=== PATIENT | male | born 1950 | race Caucasian/White ===

== ENCOUNTER 2017-10-31 11:52 | Outpatient (CLI) | payer BC ==
[~2017-10-31] VITALS: Ht 165.1 cm; Wt 101.4 kg
--- NOTE | ~2017-10-31 | HEMODYNAMI ---
PATIENT:LYN RUSS MEDICAL RECORD: [id number] : 46 LOCATION:[facility] ADMISSION DATE: 10/31/17 Generatedon:10/31/201715:13 Patient name: LYN RUSS Patient #: [id number] SSN: : 1950 Date of study: 10/31/2017 Page: Of Hemodynamic Procedure Report Patient Data Patient Demographics Procedure consent was obtained First Name: LYN Gender: Male Last Name: JEB : 1950 [facility] Initial: HEAVEN Age: 66 year(s) Patient #: [id number] Race: Unknown Additional ID: [id number] Contact details Address: [address] [place] [address] State: [place] City: [place] Zip code: [address] Past Medical History Allergies Allergen Reaction Date Comments Reported Other allergy 10/31/2017 PCN Admission Admission Data Admission Date: 10/31/2017 Admission Time: 11:52 Height (in.): 66 BSA: 2.11 (m2) Height (cm.): 167.64 BMI: 36.64 (kg/m2) Weight (lbs.): 227 Weight (kg.): 102.97 Lab Results Lab Result Date: 10/31/2017 Lab Result Time: 0:00 Biochemistry Name Units Result Min Max BUN mg/dl 25 --(----)-* 7 18 Creatinine mg/dl 1.3 --(---*)-- 0.6 1.3 CBC Name Units Result Min Max Hemoglobin g/dl 47.9 --(----)-* 13.5 17.5 Procedure Procedure Types Cath Procedure Diagnostic Procedure LHC LHC w/Coronaries w/Grafts Sedation Charges Moderate Sedation up to 30 minutes PCI Procedure Coronary Stent Coronary Stent Initial Procedure Description Procedure Date Procedure Date: 10/31/2017 Procedure Start Time: 14:42 Procedure End Time: 15:11 Procedure Staff Name Function Carmine Mahoney MD Performing Physician Trudi Montenegro RT Monitor Jesús Reynolds RN Nurse Mary Bee RT Scrub Procedure Data Cath Procedure Fluoroscopy Diagnostic fluoroscopy Total fluoroscopy Time: 6.8 time: 6.8 min min Diagnostic fluoroscopy Total fluoroscopy dose: 496 dose: 496 mGy mGy Contrast Material Contrast Material Type Amount (ml) Isovue 300 122 Entry Location Entry Primary Successful Side Size Upsize Upsize Entry Closure Succes sful Closure Location (Fr) 1 (Fr) 2 (Fr) Remarks Device Remarks Femoral Right 5 Fr 6 Fr Exoseal artery Short Estimated blood loss: 10 ml Diagnostic catheters Device Type Used For End Catheter Placement MULTIPACK JL 4.0 5Fr Procedure catheter MULTIPACK 3DRC 5Fr Procedure catheter DIAGNOSTIC IM 5Fr Procedure catheter ([id number]) MULTIPACK Pigtail 5 Fr Procedure catheter Procedure Complications No complications Procedure Medications Medication Administration Route Dosage Oxygen etCO2 Nasal cannula 2 l/min Heparin Flush Bag added to field 2 bags (1000units/500ml NS) 0.9% NaCl I.V. 100 ml/hr Fentanyl I.V. 50 mcg Versed I.V. 1 mg Fentanyl I.V. 50 mcg Versed I.V. 1 mg Heparin Bolus I.V. 19314 units Brilinta P.O. 180 mg Hemodynamics Rest BSA: 2.11 (m2) O2 Consumption: Estimated: 249.54 (ml/min) O2 Consumption indexed : Estimated:118.27 (ml/min/m) Heart Rate: 76 (bpm) Pressure Samples Time Site Value (mmHg) Purpose Heart Use Rate(bpm) 14:52 LV 155/20,36 Snapshot 76 14:53 AO 159/46(87) Pullback 76 14:53 LV 122/2,16 Pullback 76 Gradients Valve Time Site 1 Site 2 Mean SEP/DFP Peak To Heart Use (mmHg) (sec/min) Peak Rate (mmHg) (bpm) Aortic 14:53 LV AO 0 76 122/2,16 159/46(87) Calculations Valve P-P Mean Valve Index Valve Source Name Gradient Area Flow (cm2) Aortic 0 0 Snapshots Pre Cath Intra NCS Post Cath Vital Signs Time Heart Resp SPO2 etCO2 NIBP (mmHg) Rhythm Pain Sedation Rate (ipm) (%) (mmHg) Status Level (bpm) 14:29:47 67 17 97 0 177/107(149) NSR 0 (11) 10(A) , No pain 14:39:06 57 16 82 0 146/78(106) NSR 0 (11) 9(A) , No pain 14:44:21 61 17 95 0 158/101(134) NSR 0 (11) 9(A) , No pain 14:48:37 76 18 96 37.5 156/88(113) NSR 0 (11) 9(A) , No pain 14:54:13 76 18 94 9 149/86(112) NSR 0 (11) 9(A) , No pain 14:58:36 73 17 93 32.3 153/83(116) NSR 0 (11) 9(A) , No pain 15:02:57 77 17 93 21 150/80(110) NSR 0 (11) 9(A) , No pain 15:07:16 78 16 94 8.2 149/83(113) NSR 0 (11) 9(A) , No pain 15:12:41 79 17 93 8.2 156/80(108) NSR 0 (11) 9(A) , No pain Medications Time Medication Route Dose Verified Delivered Reason Notes Effectiveness by by 14:32:18 Oxygen etCO2 2 Carmine Jesús Per physician Nasal l/min Denzel Reynolds RN cannula 14:32:25 Heparin Flush added 2 Carmine Jesús used for Bag to bags Denzel Reynolds RN procedure (1000units/500ml field NS) 14:32:36 0.9% NaCl I.V. 100 Carmine Jesús Per physician ml/hr Denzel Reynolds RN 14:37:22 Fentanyl I.V. 50 Carmine Jesús for sedation mcg Denzel Reynolds RN 14:37:29 Versed I.V. 1 mg Carmine Jesús for sedation Denzel Reynolds RN 14:42:49 Fentanyl I.V. 50 Carmine Jesús for sedation mcg Denzel Reynolds RN 14:42:54 Versed I.V. 1 mg Carmine Jesús for sedation Denzel Reynolds RN 14:59:39 [place]. 39144 Carmine Jesús for units Denzel Reynolds RN anticoagulation 15:13:19 Brilinta P.O. 180 Carmine Jesús for mg Denzel Reynolds RN antiplatelet therapy Procedure Log Time Note 14:10:25 Mary Bee RT(R) sent for patient. Start room use. 14:22:53 Patient Height : 66 inches 14:23:18 Patient Weight : 227 lbs 14:24:02 Lab Result : BUN 25 mg/dl 14:24: Lab Result : Hemoglobin 47.9 g/dl 14::02 Lab Result : Creatinine 1.3 mg/dl 14::23 Diagnostic Cath status Elective 14:25:26 Time tracking: Regular hours (M-F 7:00 - 5:00) 14:25:31 Plan of Care:Hemodynamics will remain stable., Cardiac rhythm will remain stable., Comfort level will be maintained., Respiratory function will remain adequate., Patient/ family verbilizes understanding of procedure., Procedure tolerated without complication., Recovers from procedure without complications.. 14:25:37 Patient received from Pre/Post Procedure Room to CCL 3 Alert and oriented. Tansferred to table in Supine position. 14:25:38 Warm blankets applied, and rafa hugger turned on for patient comfort. 14:25:39 Correct patient and procedure confirmed by team. 14:25:40 Signed procedure consent form obtained from patient. 14:25:42 ECG and BP/O2 sat monitors applied to patient. 14:25:57 H&P Date Dictated: 10/23/2017 Within 30 days and on chart.. 14:25:59 Pre-procedure instructions explained to patient. 14:26:01 Family in waiting room. 14:26:03 Patient NPO since Midnight. 14:26:28 Patient allergic to Other allergyPCN 14:26:33 Was the patient premedicated? No 14:26:45 Is patient on blood thinner?No 14:27:27 Patient diabetic? No. 14:27:32 Snore? Yes 14:27:45 IV patent on arrival in left hand with 0.9% NaCl at [facility]. 14:28:03 Right groin area was prepped with chlora-prep and draped in sterile fashion 14:28:07 Physician paged 14:30:30 Sleep apnea? Yes 14:32:18 Oxygen 2 l/min etCO2 Nasal cannula was administered by Jesús Reynolds RN; Per physician; 14:32:25 Heparin Flush Bag (1000units/500ml NS) 2 bags added to field was administered by Jesús Reynolds RN; used for procedure; 14:32:36 0.9% NaCl 100 ml/hr I.V. was administered by Jesús Reynolds RN; Per physician; 14:33:30 Physician arrived 14:33:31 --------ALL STOP TIME OUT------ 14:33:32 Final Timeout: patient, procedure, and site verified with staff and physician. All members of the team are in agreement. 14:33:34 Right Radial & Right Groin site verified by team. 14:33:39 Physical assessment completed. ASA score P 2 - A patient with mild systemic disease as per Carmine Mahoney MD. 14:33:43 Sedation plan: IV Moderate Sedation Medication:Versed, Fentanyl 14:33:56 Use device set Femoral Dx 14:37:22 Fentanyl 50 mcg I.V. was administered by Jesús Reynolds RN; for sedation; 14:37:24 ACIST Syringe (47130) opened to sterile field. 14:37:24 Bag Decanter (2002S) opened to sterile field. 14:37:29 Versed 1 mg I.V. was administered by Jesús Reynolds RN; for sedation; 14:37:29 Medline Cath Pack ([id number]) opened to sterile field. 14:37:30 DIAGNOSTIC WIRE .035 260cm J wire (460748) opened to sterile field. 14:37:31 ACIST Hand Control (09593) opened to sterile field. 14:37:32 ACIST Manifold (46763) opened to sterile field. 14:37:32 DIAGNOSTIC Multipack 5Fr catheter set (IE8271) opened to sterile field. 14:37:33 Tegaderm 4 x 4 (1626W) opened to sterile field. 14:37:36 PERCUTANEOUS ENTRY 19GA needle opened to sterile field. 14:37:38 SHEATH Prelude 5Fr 0.035 (TGG-3T-69-035) opened to sterile field. 14:37:41 Vital chart was started 14:41:58 Procedure started. 14:41:58 Full Disclosure recording started 14:42:11 Local anesthetic to right femoral artery with Lidocaine 2% by Carmine Mahoney MD.INITIAL ACCESS ONLY 14:42:26 Zero performed for pressure channel P1 14:42:36 Zero performed for pressure channel P1 14:42:49 Fentanyl 50 mcg I.V. was administered by Jesús Reynolds RN; for sedation; 14:42:54 Versed 1 mg I.V. was administered by Jesús Reynolds RN; for sedation; 14:42:56 A 5 Fr sheath was inserted into the Right Femoral artery 14:45:43 A MULTIPACK JL 4.0 5Fr catheter was advanced over the wire and used for Procedure. 14:46:10 LCA angiography performed. 14:47:30 Catheter removed. 14:48:30 A MULTIPACK 3DRC 5Fr catheter was advanced over the wire and used for Procedure. 14:49:13 RCA angiography performed. 14:49:40 SVG to Circ occluded. 14:49:43 Catheter removed. 14:49:55 A DIAGNOSTIC IM 5Fr catheter ([id number]) was advanced over the wire and used for Procedure. 14:51:18 BROWN to LAD angiography performed. 14:51:40 Catheter removed. 14:52:47 A MULTIPACK Pigtail 5 Fr catheter was advanced over the wire and used for Procedure. 14:54:03 EF : 40 % 14:54:20 Catheter removed. 14:55:15 Proceeding to intervention. 14:57:04 TUBING High Pressure Extension Tubing (Mahoney) ([id number]) opened to sterile field. 14:57:07 INFLATOR Merit BasixCompak (BT0222) opened to sterile field. 14:57:08 SHEATH 6Fr Prelude ([id number]) opened to sterile field. 14:57:09 BMW 300cm [place] 2 J wire ([id number]) opened to sterile field. 14:57:30 Sheath upsized to a 6 Fr Short. 14:57:49 6 Fr XBLAD guide catheter was inserted over the wire 14:58:08 GUIDE 6FR XBLAD 3.5 catheter ([id number]) opened to sterile field. 14:58:41 BMW wire advanced. 14:59:39 Heparin Bolus 71337 units I.V. was administered by Jesús Reynolds RN; for anticoagulation; 15:04:57 Wire advanced across lesion. 15:07:27 Place stent Inflation Number: 1 A JOSÉ MIGUEL OTW 2.5 x 12 stent ([id number]) was prepped and advanced across the 1st Diag. The stent was deployed at 10 CANDY for 0:26 (min:sec). 15:08:28 EXOSEAL 6Fr (EX600) opened to sterile field. 15:08:35 Wire removed. 15:08:37 Guide catheter removed. 15:08:49 Sheath removed intact; hemostasis achieved with Exoseal to the Right Femoral artery. 15:09:19 Procedure ended.(Physican Out) 15:09:35 Fluoroscopy time 06.80 minutes. 15:09:44 Flurop Dose total: 496 15:09:44 Fluoroscopy dose: 496 mGy 15:09:48 Contrast amount:Isovue 300 122ml. 15:09:50 Sharps counted by scrub and verified by R.N. 15:09:51 Insertion/operative site no bleeding no hematoma. 15:09:55 Post right femoral artery:stable 15:10:02 Post procedure rhythm: unchanged. 15:10:07 Estimated blood loss: 10 ml 15::09 Post procedure instruction explained to patient.Patient verbalizes understanding. 15:10:58 Procedure type changed to Cath procedure, Diagnostic procedure, LHC, LHC w/Coronaries w/Grafts, Sedation Charges, Moderate Sedation up to 30 minutes, PCI procedure, Coronary Stent, Coronary Stent Initial 15:11:00 Procedure and supply charges have been captured, reviewed, submitted and are correct. 15:11:26 Procedure Complication : No complications 15:11:29 Vital chart was stopped 15:11:30 See physician's report for complete and final results. 15:11:32 Report given to Pre/Post Procedure Room. 15:11:36 Patient transfered to Pre/Post Procedure Room with Stretcher. 15:11:39 Procedure ended. 15:11:39 Full Disclosure recording stopped 15:11:47 End room use (Document Last) 15:11:52 ACC-PCI Only Patient was given prescriptions, or instructed by Carmine Mahoney MD to start/continue the following medications upon discharge: Plavix 15:13:19 Brilinta 180 mg P.O. was administered by Jesús Reynolds RN; for antiplatelet therapy; Intervention Summary Intervention Notes Time ActionType Lesion and Equipment Action# Pressure Duration Attributes Used 15:07:27 Place stent 1st Diag JOSÉ MIGUEL OTW 2.5 1 10 00:26 x 12 stent ([id number]) Device Usage Item Name Manufacture Quantity Catalog Number Hospital Part Current M inimal Lot# / Charge Number Stock Stock Serial# Code ACIST Syringe Acist 1 66975 185629 107668 983124 2 0 (55617) [employer] Bag Decanter Microtek 1 2001S 011019 77749 512302 5 (2001S) Medical Inc. Medline Cath Cardinal 1 [id number] 529230 35731 846580 5 Pulsar Vascular Health ([id number]) DIAGNOSTIC WIRE [facility] 1 016330 206131 694127 254071 3 0 .035 260cm J wire (597274) ACIST Hand Acist 1 90145 254368 310949 839312 5 Control (97984) [employer] Inc ACIST Manifold Acist 1 75193 845322 161999 436004 5 (94543) [employer] Inc DIAGNOSTIC Cardinal 1 PD5034 111596 41854 361561 3 0 Multipack 5Fr Health catheter set (BS2652) Tegaderm 4 x 4 3M 1 1626W 951706 799450 157271 5 (1626W) PERCUTANEOUS Cook Medical 1 P81704 059619 272459 5 ENTRY 19GA needle SHEATH Prelude Merit 1 PLS-2Y-58-035 808559 085958 644436 5 5Fr 0.035 Medical (VBF-6N-43-035) MULTIPACK JL Cardinal 1 024060 5 4.0 5Fr Health catheter MULTIPACK 3DRC Cardinal 1 430082 5 5Fr catheter Health DIAGNOSTIC IM Cardinal 1 [id number] 077379 626786 079780 5 5Fr catheter Health (109014G) MULTIPACK Cardinal 1 720336 5 Pigtail 5 Fr Health catheter TUBING High Merit 1 [id number] 388712 02317 298532 1 0 Pressure Medical Extension Tubing (Mahoney) (AP3916T) INFLATOR Merit Merit 1 VZ6462 802223 353942 781350 1 5 BasixVenuefox Medical (BR0202) SHEATH 6Fr Merit 1 [id number] 092514 303547 403876 5 Prelude Medical ([id number]) BMW 300cm Parker 1 [id number] 708885 839154 138747 5 [place] 2 J Vascular wire (8429832P) GUIDE 6FR XBLAD Cardinal 1 [id number] 673655 153757 246201 1 0 3.5 catheter Health (98997696) JOSÉ MIGUEL OTW 2.5 x Medtronic 1 [id number] 602395 03547 538698 5 [id number] 12 stent ([id number]) EXOSEAL 6Fr Cardinal 1 EX600 019455 676254 135748 1 0 (EX600) Health Signature Audit [place] Stage Time Signature Unsigned Intra-Procedure 10/31/2017 Trudi Montenegro 3:13:42 PM RT(R) Signatures Monitor : Trudi Montenegro Signature : RT Date : Time : [id number] [place] [address]
[2017-10-31] MEDS ORDERED: LOPRESSOR25 MG PO (12:08)
[2017-10-31] MEDS ORDERED: BENICAR HCT 20-1 TA1 PO (12:08)
[2017-10-31] MEDS ORDERED: ULORIC80 MG PO (12:09)
[2017-10-31] MEDS ORDERED: FUROSEMIDE20 MG PO (12:09)
[2017-10-31] MEDS ORDERED: COLCRYS0.6 MG PO (12:10)
[2017-10-31 12:18] VITALS: BP 154/83; Ht 165.1 cm; Wt 101.4 kg
[2017-10-31 12:51] LABS: CARBON DIOXIDE 33.8 mmol/L (21.0-32.0); CREATININE - SERUM 1.3 mg/dL (0.6-1.3)
[2017-10-31 12:55] LABS: ANION GAP 6.2 mmol/L (8-16)
[2017-10-31 13:13] LABS: BASOPHILS 0.3 % (0-2); EOSINOPHILS 5.2 % (0-7); HEMATOCRIT 47.9 % (42.0-54.0); HEMOGLOBIN 16.7 g/dL (13.5-17.5); IMMATURE GRANULOCYTES 0.5 % (0-5); LYMPHOCYTES 27.8 % (15-50); MCH 33.9 pg (26.0-34.0); MCHC 34.9 g/dL (31.0-37.0); MCV 97.4 fL (80.0-100.0); MONOCYTES 6.1 % (2-11); NEUTROPHILS 60.1 % (40-80); PLATELET COUNT 203 10x3/uL (130-400); RBC 4.92 10x6/uL (4.20-6.10); RDW 12.8 % (11.5-14.5); WBC 11.1 10x3/uL (4.8-10.8)
[2017-10-31] MEDS ORDERED: BRILINTA90 MG PO (16:04)
[2017-10-31] MEDS ORDERED: BAYER CHEWABLE81 MG PO (16:04)
== END 2017-10-31 19:25 | disposition home or self-care (01) ==
LOC: D.CATH 11:52
PROVIDERS: Internal Medicine Cardiovascular Disease
DX: I25.119 Atherosclerotic heart disease of native coronary artery with unspecified angina pectoris (principal); I25.719 Atherosclerosis of autologous vein coronary artery bypass graft(s) with unspecified angina pectoris; Z01.812 Encounter for preprocedural laboratory examination